=== PATIENT | female | born 1945 | race Caucasian/White ===

== ENCOUNTER 2018-07-11 07:59 | Day surgery (SDC) | payer MEDICARE ==
[2018-07-11] MEDS ORDERED: LIDOCAINE 2% MDV (20MG/ML) 20ML VIAL IV ONE (08:00)
[2018-07-11] MEDS ORDERED: PROPOFOL 10 MG/ML VIAL IV ONE (08:00)
--- NOTE | 2018-07-11 14:00 | Operative Note ---
DATE OF SURGERY: 07/11/2018 OPERATION: COLONOSCOPY to the cecum. INDICATION: Prior history of adenomatous polyps. The patient returns at this time after 3 years for surveillance. She denies current issues from a GI standpoint. ANESTHESIA: Intravenous sedation was administered by the department of anesthesiology and included Diprivan titrated to effect. PROCEDURE: Following informed consent from this alert individual including a discussion of the risks and benefits of the procedure and an opportunity for the patient to ask questions, the patient was in the left lateral decubitus position. A digital rectal examination was performed. No abnormalities were noted. Following this, the Olympus [id number] video colonoscope was inserted into the rectum without resistance. The rectal mucosa had a normal appearance with normal folds and distensibility. The colonoscope was advanced up through the colon to the level of the cecum without much difficulty. A few scattered diverticula were noted in the sigmoid region. The cecum was well defined by noting the appendiceal orifice and ileocecal valve. Retroflexion in the cecum was endoscopically unremarkable. From the base of the cecum, the colonoscope was then slowly withdrawn. No additional abnormalities were detected. Again diverticulosis was noted in the sigmoid region. Retroflexion in the rectum was endoscopically normal the colon preparation overall was good. The instrument was removed. The patient tolerated the procedure well and was returned to the recovery area in stable condition. IMPRESSION: 1. Sigmoid diverticulosis. 2. Otherwise unremarkable colonoscopy to the cecum. RECOMMENDATIONS: The patient was advised to have recheck colonoscopy for surveillance in 5 years' time or sooner if problems arise. Followup will otherwise be with Dr. Gabriel Ryan. As always, thank you for allowing me to participate in the care of your patient. CC: DO ROSALINA Montanez
== END 2018-07-11 09:55 | disposition home or self-care (01) ==
LOC: HOP 07:59
PROVIDERS: ATTEND Internal Medicine Gastroenterology
DX: Z12.11 Encounter for screening for malignant neoplasm of colon (principal); Z86.010 Personal history of colon polyps; K57.30 Diverticulosis of large intestine without perforation or abscess without bleeding
CPT/HCPCS: 00812; G0105